=== PATIENT | male | born 1965 | race Caucasian/White ===

== ENCOUNTER 2017-04-30 13:29 | Emergency (ER) | payer OTHER ==
[~2017-04-30] VITALS: Ht 165.1 cm; Wt 53.1 kg
[2017-04-30 13:36] VITALS: Ht 165.1 cm; Wt 53.1 kg
[2017-04-30] MEDS ORDERED: HYDR-902 PO (15:38)
--- NOTE | 2017-04-30 15:46 | ERD ---
ER Documentation Chief Complaint Chief Complaint REQUESTING MEDICATION REFILL, NO COMPLAINTS HPI This is a 51-year-old male who presents to the emergency department today for requesting med refill. Patient states he has a chronic back pain for many years. States that he sees Rosemary Keating at [facility] and he was supposed to have an appointment with her last week however she was not around and his appointment got bumped to this Friday. Denies any new trauma, fevers or chill, loss of bowel or bladder control. ROS All systems reviewed and are negative except as per history of present illness. Medications Home Meds Active Scripts Hydrocodone/Acetaminophen ([place] 10-325 Tablet) 1 Each Tablet, 1 TAB PO Q6H Y for PAIN, #12 TAB Prov:KATLYN SUMNER PA-C 04/30/17 Allergies Allergies: Coded Allergies: Penicillins (Verified Allergy, Mild, FEVER, HEADACHES, 04/30/17) azithromycin (Verified Allergy, Mild, RASH, 04/30/17) tramadol (Verified Allergy, Mild, FEVER, 04/30/17) PMhx/Soc Medical and Surgical Hx: pt denies Medical Hx, pt denies Surgical Hx Hx Alcohol Use: No Hx Substance Use: No Hx Tobacco Use: No Smoking Status: Never smoker Physical Exam Vitals Vital Signs Date Time Temp Pulse Resp B/P Pulse Ox O2 Delivery O2 Flow Rate FiO2 04/30/17 13:36 99.5 116 16 123/76 100 Physical Exam Const: pleasant, NAD Head: Atraumatic Eyes: Normal Conjunctiva ENT: Normal External Ears, Nose and Mouth. Neck: Full range of motion..~ No meningismus. Resp: Clear to auscultation bilaterally Cardio: Regular rate and rhythm, no murmurs Abd: Soft, non tender, non distended. Normal bowel sounds Skin: No petechiae or rashes Back: No midline or flank tenderness Ext: No cyanosis, or edema Neur: Awake and alert Psych: Normal Mood and Affect Procedures/MDM This a 51-year-old male who presents to the emergency department today the history of chronic back pain. Patient goes to the [facility] and see Rosemary SHERMAN for his chronic pain. The patient's first visit to the emergency room and patient apologized profusely for having to come to the ER for those. Patient takes a number of medications. He takes meloxicam, oxycodone, OxyContin, cyclobenzaprine, gabapentin and carisoprodol. Patient indicated that he ran out of his oxycodone in the past had been supplemented with [place] to hold him over until he could be seen again. Patient did bring all of his prescription with him and I did do a CURES report that shows that the patient does in fact take all of these medications on a regular monthly basis and they have only ever been prescribed by Rosemary Keating. Patient provided me the phone number for the [facility] and I did place a call to them and I spoke to Leah one of the medical assistants who did indicate that the patient is scheduled for an appointment with Rosemary Keating this Friday. I agreed to give the patient of [place] that would hold him over so that he does not have to double up on his OxyContin which is what he was trying to avoid. Patient is afebrile and otherwise well-appearing. He was slightly tachycardic as he did indicate he had some pain. Patient any new trauma and I do not feel he requires further workup or imaging at this time. He was driving himself and I did not give the patient any medication here. Patient was okay with that. I did explain to the patient that we would not continue refilling any of his chronic pain medications and patient understood. At this time the patient is stable for discharge and outpatient management. Patient should follow up with their PCP in the next 1-2 days. They may return to the emergency department sooner for any persistent or worsening of symptoms. Patient understood and agreed with the plan. Departure Diagnosis: Primary Impression: Encounter for medication refill Condition: Fair Patient Instructions: Taking Medicine Safely, Pain Management Referrals: Rosemary Keating Additional Instructions: Call your primary care doctor TOMORROW for an appointment during the next 1-2 days.See the doctor sooner or return here if your condition worsens before your appointment time. Keep your appt with Rosemary Keating at [facility] on Friday KATLYN SUMNER PA-C Apr 30, 2017 15:46
== END 2017-04-30 16:02 | disposition home or self-care (01) ==
LOC: FTE 13:29
DX: Z76.0 Encounter for issue of repeat prescription (principal)
CPT/HCPCS: 99281